=== PATIENT | female | born 1985 | race African-American/Black ===

== ENCOUNTER 2023-11-22 00:58 | Emergency (ER) | payer BC, OTHER ==
[2023-11-22 01:08] VITALS: BP 100/60; PULSE 73; RESP 18; TEMP 98.4; BMI 28.6
[2023-11-22] MEDS ORDERED: DIPHTH,PERTUSS(ACELL),TET 0.5 ML DISP.SYRIN IM ONE ×2 (01:57→02:02)
[2023-11-22] MEDS: DIPHTH,PERTUSS(ACELL),TET 0.5 ML DISP.SYRIN IM ONE (02:00)
== END 2023-11-22 02:13 | disposition home or self-care (01) ==
LOC: FER 00:58
PROC: 0HQDXZZ Repair Right Lower Arm Skin, External Approach (ICD-10-PCS; principal; 2023-11-22)
PROC: 3E0234Z Introduction of Serum, Toxoid and Vaccine into Muscle, Percutaneous Approach (ICD-10-PCS; 2023-11-22)
DX: S61.210A Laceration without foreign body of right index finger without damage to nail, initial encounter (principal); W25.XXXA Contact with sharp glass, initial encounter; Y93.89 Activity, other specified
CPT/HCPCS: 90715; 99282-25

== ENCOUNTER 2023-11-28 10:34 | Emergency (ER) | payer BC ==
[2023-11-28 11:10] VITALS: BP 113/60; PULSE 68; RESP 18; TEMP 98.3; BMI 28.6
== END 2023-11-28 11:16 | disposition home or self-care (01) ==
LOC: FER 10:34
DX: Z48.02 Encounter for removal of sutures (principal)
CPT/HCPCS: 99281-25